=== PATIENT | female | born 2000 | race Caucasian/White ===

== ENCOUNTER 2019-04-05 23:03 | Emergency (ER) | payer BC ==
[2019-04-05] MEDS ORDERED: Albuterol 0.083% 2.5 MG/3 ML Neb Soln NEB ONE (23:30)
[2019-04-05] MEDS ORDERED: Albuterol/Ipratropium 3.0-0.5 MG/3 ML Neb Soln NEB ONE (23:30)
[2019-04-05] MEDS ORDERED: predniSONE 20 MG Tab PO ONE (23:30)
--- NOTE | 2019-04-05 23:37 | EDM.PDOC ---
ED HPI GENERAL MEDICAL PROBLEM - General Chief Complaint: Respiratory Problem Stated Complaint: SOB Time Seen by Provider: 04/05/19 23:15 Source of Information: Reports: Patient History Limitations: Reports: No Limitations - History of Present Illness INITIAL COMMENTS - FREE TEXT/NARRATIVE: 18-year-old female who reports onset of nasal congestion, body aches, subjective fever and cough Saturday of last week. She has persisted with these symptoms and the cough has worsened. She has developed wheezing and difficulty breathing over the past few days which has also worsened with time. She continues with body aches throughout which she rates as a 6/10. It is aching. It is all over her body. She also has some tightness and soreness in her chest that is worse with coughing that she also rates as a 6/10 and up to a 10/10 when she coughs. She has had no nausea or vomiting. She has been taking liquids well. She has not been sleeping well secondary to the cough. She has bilateral ear pain and sore throat as well. The nasal discharge has been green. She has had scant phlegm production. There are no other associated signs or symptoms. There are no other modifying factors. Onset: Other (Saturday of this last week) Duration: Getting Worse Location: Reports: Chest, Generalized Quality: Reports: Ache, Sharp (Some sharp pains in her chest with cough) Severity: Moderate (to severe) Improves with: Reports: Rest Worsens with: Reports: Breathing, Other (Cough.) Context: Reports: Other (As above) Associated Symptoms: Reports: Chest Pain, Cough, Malaise, Shortness of Breath Treatments GUIDE CHANGER: Reports: Other (see below) (Nothing) - Related Data Allergies Allergy/AdvReac Type Severity Reaction Status Date / Time varicella virus vaccine live Allergy Swelling Verified 04/05/19 23:09 Home Meds: Home Meds Ibuprofen 200 mg PO Q8HR 04/05/19 [History] Albuterol Sulfate [Albuterol Sulfate Hfa] 2 - 4 puff IH Q4H PRN #1 hfa.aer.ad [Rx] Azithromycin [Zithromax] 250 mg PO DAILY 4 Days #4 tab 04/06/19 [Rx] Benzonatate [Tessalon Perle] 100 mg PO Q6H PRN #16 capsule 04/06/19 [Rx] predniSONE 60 mg PO DAILY 5 Days #15 tab 04/06/19 [Rx] Past Medical History Respiratory History: Reports: Asthma, Other (See Below) Other Respiratory History: sports induced asthma. Psychiatric History: Reports: Anxiety, Depression Other Psychiatric History: not on any medication. - Past Surgical History HEENT Surgical History: Reports: Oral Surgery ([place] teeth extraction) GI Surgical History: Reports: Cholecystectomy Social & Family History - Tobacco Use Smoking Status *Q: Current Every Day Smoker - Alcohol Use Alcohol Use History: Yes Alcohol Use Frequency: Socially - Living Situation & Occupation Living situation: Reports: with Significant Other Occupation: Employed (Works at a local factory) ED ROS GENERAL - Review of Systems Review Of Systems: See Below Constitutional: Reports: Fever (Subjective), Malaise, Fatigue HEENT: Reports: Ear Pain, Throat Pain, Other (Nasal congestion and sinus congestion) Respiratory: Reports: Shortness of Breath, Wheezing, Cough Cardiovascular: Reports: Chest Pain (With cough) Endocrine: Reports: No Symptoms GI/Abdominal: Reports: No Symptoms : Reports: No Symptoms Musculoskeletal: Reports: Other (Diffuse body aches) Skin: Reports: No Symptoms Neurological: Reports: No Symptoms Hematologic/Lymphatic: Reports: No Symptoms Immunologic: Reports: No Symptoms ED EXAM, GENERAL - Physical Exam Exam: See Below Exam Limited By: No Limitations General Appearance: Alert, Mild Distress (With wheezing and coughing), Obese Eye Exam: Bilateral Eye: EOMI, Normal Inspection, PERRL Ears: Normal External Exam, Normal Canal, Hearing Grossly Normal, Normal TMs Ear Exam: Bilateral Ear: Auricle Normal, Canal Normal, TM normal Nose: No Blood, Nasal Drainage, Other (Purulent nasal discharge) Throat/Mouth: Normal Voice, No Airway Compromise, Other (Mild posterior pharyngeal erythema. No evidence of peritonsillar abscess.) Head: Atraumatic, Normocephalic Neck: Normal Inspection, Supple, Non-Tender, Full Range of Motion Respiratory/Chest: No Respiratory Distress, Wheezing, Prolonged Expiration, Other (Decreased air movement) Cardiovascular: Normal Peripheral Pulses, Regular Rate, Rhythm, No JVD, No Murmur Peripheral Pulses: 2+: Radial (L), Radial (R) GI/Abdominal: Normal Bowel Sounds, Soft, Non-Tender, No Mass Back Exam: Normal Inspection Extremities: Normal Inspection, Normal Range of Motion, Non-Tender, No Pedal Edema, Normal Capillary Refill Neurological: Alert, Oriented, CN II-XII Intact, Normal Cognition, No Motor/ Sensory Deficits Skin Exam: Warm, Dry, Intact, Normal Color, No Rash Course - Vital Signs Last Recorded V/S: Last Vital Signs Temp 36.7 C 04/05/19 23:10 Pulse 89 04/06/19 00:40 Resp 22 H 04/06/19 00:40 BP 135/76 04/06/19 00:40 Pulse Ox 100 04/06/19 00:40 - Orders/Labs/Meds Orders: Active Orders 24 hr Category Date Time Status RT Aerosol Therapy [RC] ASDIRECTED Care 04/05/19 23:31 Active RT Aerosol Therapy [RC] ASDIRECTED Care 04/06/19 00:30 Active Chest 2V [CR] Stat Exams 04/05/19 23:29 Taken Meds: Medications Discontinued Medications Generic Name Dose Route Start Last Admin Trade Name Shahzadq PRN Reason Stop Dose Admin Albuterol 2.5 mg 04/05/19 23:30 04/05/19 23:34 Proventil [facility] 04/05/19 23:31 2.5 mg ONETIME ONE Administration Albuterol 5 mg 04/06/19 00:30 04/06/19 00:35 Proventil [facility] 04/06/19 00:31 5 mg ONETIME ONE Administration Albuterol/Ipratropium 3 ml 04/05/19 23:30 04/05/19 23:34 Duoneb 3.0-0.5 Mg/3 Ml [facility] 04/05/19 23:31 3 ml ONETIME ONE Administration Azithromycin 500 mg 04/06/19 00:31 04/06/19 00:40 Zithromax PO 04/06/19 00:32 500 mg ONETIME ONE Administration Benzonatate 200 mg 04/06/19 00:30 04/06/19 00:40 Tessalon Perles PO 04/06/19 00:31 200 mg ONETIME ONE Administration Prednisone 60 mg 04/05/19 23:30 04/05/19 23:43 Prednisone PO 04/05/19 23:31 60 mg ONETIME ONE Administration - Radiology Interpretation Free Text/Narrative:: Chest x-ray PA and lateral shows no acute disease. - Re-Assessments/Exams Free Text/Narrative Re-Assessment/Exam: 04/06/19 00:25: Patient is somewhat improved after the nebulizer treatment. Her wheezing is reduced and her air movement is improved. She still feels somewhat short of breath. Her chest x-ray shows no pneumonia. I will give the patient another albuterol nebulizer treatment and treat her with Tessalon Perle po. I will also give her the first dose of Zithromax treatment (Zithromax 500 mg po). 04/06/19 01:19: Cough is much improved now after the second nebulizer treatment and the Tessalon Perle. Her air movement is much improved. Her O2 saturations are good. She appears to have a bronchitis with reactive airway disease/asthma exacerbation. I will plan on discharging her with 4 more days of prednisone and Zithromax, an albuterol inhaler (a spacer was given to the patient) and Tessalon Perles. Departure - Departure Time of Disposition: 01:25 Disposition: Home, Self-Care 01 Condition: Good (Improved) Clinical Impression: Bronchitis Reactive airway disease Qualifiers: Asthma severity: moderate Asthma persistence: persistent Asthma complication type: with acute exacerbation Qualified Code(s): J45.41 - Moderate persistent asthma with (acute) exacerbation - Discharge Information Prescriptions: Albuterol Sulfate [Albuterol Sulfate Hfa] 2 - 4 puff IH Q4H PRN #1 hfa.aer.ad PRN Reason: Wheezing and cough Azithromycin [Zithromax] 250 mg PO DAILY 4 Days #4 tab Benzonatate [Tessalon Perle] 100 mg PO Q6H PRN #16 capsule PRN Reason: Cough predniSONE 60 mg PO DAILY 5 Days #15 tab Instructions: Bronchospasm, Adult, [id number], How to Use a Metered Dose Inhaler, Asthma, Adult, [id number] Referrals: PCP,None [Primary Care Provider] - Forms: ED Department Discharge Additional Instructions: You appear to have a bronchitis with reactive airway disease versus an asthma exacerbation. Stop smoking. Increase your fluid intake. Medication as prescribed (Zithromax, prednisone, Tessalon Perles, albuterol inhaler). Use the spacer that we provided you with the albuterol inhaler so that it is more effective. Back to the emergency department for worse breathing, unrelenting vomiting or any other concerning sign or symptom. - My Orders Last 24 Hours: My Active Orders 04/05/19 23:29 Chest 2V [CR] Stat 04/05/19 23:31 RT Aerosol Therapy [RC] ASDIRECTED 04/06/19 00:30 RT Aerosol Therapy [RC] ASDIRECTED - Assessment/Plan Last 24 Hours: My Active Orders 04/05/19 23:29 Chest 2V [CR] Stat 04/05/19 23:31 RT Aerosol Therapy [RC] ASDIRECTED 04/06/19 00:30 RT Aerosol Therapy [RC] ASDIRECTED
[2019-04-06] MEDS ORDERED: Albuterol 0.083% 2.5 MG/3 ML Neb Soln NEB ONE (00:30)
[2019-04-06] MEDS ORDERED: Benzonatate 100 MG Cap PO ONE (00:30)
[2019-04-06] MEDS ORDERED: Azithromycin 250 MG Tab PO ONE (00:31)
--- NOTE | 2019-04-07 08:12 | CR ---
INDICATION: Cough, wheezing and short of breath. CHEST TWO VIEWS: PA and lateral views of the chest were obtained 04/05/19--no comparisons. The heart, mediastinum and bony thorax were unremarkable. Evidence of exogenous obesity is noted. No consolidating pneumonia or effusion was identified. However, there is bronchial cuffing at the lower lung mackenzie, which may represent an active peribronchial disease and should be correlated clinically. MTDD
== END 2019-04-06 01:41 | disposition home or self-care (01) ==
LOC: FB.ED 23:03
DX: J45.41 Moderate persistent asthma with (acute) exacerbation (principal); F17.200 Nicotine dependence, unspecified, uncomplicated; Z88.7 Allergy status to serum and vaccine
CPT/HCPCS: 71046; 94640; 99284; A9270; J7620-GY